=== PATIENT | female | born 1950 | race Hispanic/Latino ===

== ENCOUNTER → 2018-03-04 | Outpatient (CLI) | payer MEDICARE ==
[~2018-03-04] MED LIST: GADOBENATE DIMEGLUMINE 1 ML IV ONE; SODIUM CHLORIDE 0.9% 50ML 50 ML ONE
[2018-03-04 12:06] LABS: BLOOD UREA NITROGEN 11 mg/dL (7-26); BUN/CREATININE RATIO 13 (6-25); CREATININE, SERUM 0.84 mg/dL (0.57-1.11); EST GLOMERULAR FILTRATION RATE > 60 ML/MIN (60-)
--- NOTE | 2018-03-07 07:35 | Diagnostic Imaging Report ---
Exam: Brain-pituitary MRI without and with IV contrast History: Pituitary tumor Comparison studies: None Technique: Precontrast axial DWI through the whole brain and sagittal and coronal T1 flair, coronal T2 through the sella. Postcontrast dynamic coronal T1 and coronal and sagittal T1 through the sella and axial T2 FLAIR and T1 FS through the whole brain. Intravenous contrast: 11 cc of MultiHance. Findings: Several pulse sequences are limited artifacts related to patient motion. Sella and pituitary gland: Surgical changes of previous left pterional craniotomy, presumably for previous tumor debulking. The sella is expanded by an enhancing lobulated mass which measures approximately 2.7 x 3.5 x 3.4 cm (SI x AP x TV) which extends into the suprasellar cistern and right cavernous sinus. There is a mixed solid and cystic 1.6 x 1.6 x 1.7 cm (SI x AP x TV) component of the mass which abuts the medial wall the left cavernous sinus and extends into the suprasellar cistern on the left. Pituitary stalk: Not well visualized, inseparable from mass. Optic chiasm: Poorly visualized with distorting configuration. The suprasellar component of the mass abuts the optic chiasm and left prechiasmatic optic nerve. Cavernous sinuses: Mass extends into the right cavernous sinus which has a convex lateral margin and partially encases the right cavernous ICA segment. Mass abuts the medial wall the left cavernous sinus. Internal carotid arteries: The flow voids of the internal carotid arteries, anterior cerebral arteries and proximal MCAs are maintained. Mass partially encases the right cavernous ICA segment and abuts the bilateral supraclinoid ICA segments and anterior cerebral arteries near the anterior communicating artery complex. Clivus: Mass remodels the basisphenoid. Included paranasal sinuses: Mass protrudes into the sphenoid sinus cavity, especially on the right. There are inflammatory changes in the left sphenoid sinus with trapped inspissated T1 hyperintense secretions in the left lateral recess. Included sequences through the brain: A few scattered T2 FLAIR hyperintense foci in the supratentorial white matter are nonspecific but most compatible with chronic small vessel ischemic changes. There there is reactive dural thickening along the left frontal convexity beneath the left pterional craniotomy. IMPRESSION: 1. Surgical changes of left pterional craniotomy, presumably for previous tumor developing. 2. 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 Tumor may reflect adenoma but should be correlated with pathologic diagnosis. 3. Mild supratentorial chronic microvascular ischemic changes. Signed by: Dr. Balaji Lopez M.D. on 03/07/2018 7:31 AM
== END ==
LOC: MRI 11:19
PROVIDERS: ATTEND Specialist
DX: E23.7 Disorder of pituitary gland, unspecified (principal)
CPT/HCPCS: 36415; 70553; 82565; 84520